=== PATIENT | male | born 1960 | race Caucasian/White ===

== ENCOUNTER 2021-11-05 15:41 | Emergency (ER) | payer BC ==
[~2021-11-05] VITALS: Ht 185.4 cm; Wt 86.2 kg
[2021-11-05] MEDS ORDERED: LEVOTHYROXINE25 MC1 PO (16:23)
[2021-11-05] MEDS ORDERED: LEVOFLOXACIN750 MG PO (18:57)
[2021-11-05] MEDS ORDERED: HYDROCODON-ACE1 EA11 PO (18:57)
== END 2021-11-05 19:27 | disposition home or self-care (01) ==
LOC: ED 15:41
DX: N45.1 Epididymitis (principal); E10.9 Type 1 diabetes mellitus without complications; E03.9 Hypothyroidism, unspecified; Z79.899 Other long term (current) drug therapy
CPT/HCPCS: 76870; 81001; 87088; 99284-25; A9270